=== PATIENT | female | born 1940 | race Hispanic/Latino ===

== ENCOUNTER → 2017-12-24 | Outpatient (CLI) | payer OTHER | END | disposition home or self-care (01) | LOC: RAH 08:34 | PROVIDERS: ATTEND Family Medicine | DX: R92.8 Other abnormal and inconclusive findings on diagnostic imaging of breast (principal); Z85.3 Personal history of malignant neoplasm of breast; Z90.12 Acquired absence of left breast and nipple | CPT/HCPCS: 77065 ==

== ENCOUNTER 2019-01-09 19:18 | Emergency (ER) | payer OTHER ==
[2019-01-09 19:36] LABS: APPEARANCE,URINE Clear (CLEAR); BILIRUBIN,URINE Negative (NEGATIVE); COLOR,URINE Yellow (YELLOW); GLUCOSE, URINE (UA) 250 mg/dL (NEGATIVE); KETONES,URINE Trace mg/dL (NEGATIVE); LEUKOCYTE ESTERASE ,URINE Trace (NEGATIVE); NITRATE,URINE Negative (NEGATIVE); OCCULT BLOOD,URINE Large (NEGATIVE); PROTEIN,URINE Trace mg/dL (NEGATIVE)
[2019-01-09 19:46] LABS: BACTERIA,URINE Few /HPF (None Seen); HYALINE CASTS, URINE 0-1 /LPF (0-1 /LPF); WBC,URINE 0-1 /HPF (0-1)
[2019-01-09 19:48] LABS: BASOPHILS % (AUTO) 0.1 % (0.0-5.0); HEMATOCRIT 36.5 % (36-48); LYMPHOCYTES % (AUTO) 11.8 % (21.0-51.0); MEAN CORPUSCULAR HEMOGLOBIN 30.8 pg (27.0-33.0); MEAN CORPUSCULAR HGB CONC 33.8 g/dL (32.0-36.0); MEAN CORPUSCULAR VOLUME 91.2 fL (79-99); MONOCYTES % (AUTO) 5.6 % (3.0-13.0); NEUTROPHILS % (AUTO) 82.5 % (40.0-77.0); PLATELET COUNT (AUTO) 218 K/uL (130-400); RED CELL DISTRIBUTION WIDTH 15.9 % (11.0-15.5); WHITE BLOOD COUNT (AUTO) 10.5 K/uL (4.8-10.8)
[2019-01-09 20:02] LABS: ALBUMIN 4.1 g/dL (3.5-5.0); BILIRUBIN,TOTAL 0.4 mg/dL (0.2-1.0); CREATININE 1.1 mg/dL (0.5-1.5); TOTAL PROTEIN, SERUM 7.5 g/dL (6.0-8.3)
[2019-01-09 20:03] LABS: POTASSIUM 2.8 mmol/L (3.5-5.1)
[2019-01-09] MEDS ORDERED: ONDANSETRON HCL 4 MG/2 ML VIAL ONE (20:15)
[2019-01-09] MEDS ORDERED: POTASSIUM CHLORIDE 20 MEQ ERTAB PO ONE (20:16)
[2019-01-13] MEDS ORDERED: SIMV20TA6 PO (05:47)
[2019-01-13] MEDS ORDERED: METF-446 PO (05:47)
[2019-01-13] MEDS ORDERED: LOSA100T58 PO (05:47)
[2019-01-13] MEDS ORDERED: GLIP5TAB11 PO (05:47)
== END 2019-01-10 00:27 | disposition home or self-care (01) ==
LOC: EDH 19:18
DX: E11.9 Type 2 diabetes mellitus without complications (principal); I10 Essential (primary) hypertension; E78.5 Hyperlipidemia, unspecified; Z90.12 Acquired absence of left breast and nipple
CPT/HCPCS: 36415; 74021; 80053; 81001; 83690; 84484; 85025; 87088; 93005; 96374; 99285; J2405

== ENCOUNTER 2020-02-03 09:53 | Day surgery (SDC) | payer OTHER ==
[~2020-02-03] VITALS: Ht 154.9 cm; Wt 48.1 kg
[2020-02-03] VITALS (8 sets, daily range): BP systolic 94–133; BP diastolic 41–73
[~2020-02-03 09:53] MED LIST: ACET-2743 PO; GLIP5TAB11 PO; LORA10TA7 PO; LOSA100T58 PO; METF-446 PO; MULT-1203 PO; SIMV-43 PO
[2020-02-03] MEDS ORDERED: SODIUM CHLORIDE 0.9% 1000ML 1,000 ML IV ONE (10:50)
[2020-02-03] MEDS ORDERED: PROPOFOL 10 MG/ML 20ML VIAL IV ONE (12:52)
== END 2020-02-03 13:30 | disposition home or self-care (01) ==
LOC: ENDO 09:53 → DAH 09:53 → ENDO 13:30
PROVIDERS: ATTEND Student in an Organized Health Care Education/Training Program
DX: Z12.11 Encounter for screening for malignant neoplasm of colon (principal); K63.5 Polyp of colon; Z11.59 Encounter for screening for other viral diseases; I10 Essential (primary) hypertension; E11.9 Type 2 diabetes mellitus without complications; E78.00 Pure hypercholesterolemia, unspecified; Z85.038 Personal history of other malignant neoplasm of large intestine
CPT/HCPCS: 36415; 45380; 82948 ×2; 88305; A4215; A4221; A4222; A4223; A4606; A4620; A4657; A4663; J2704; J7030; U0003; 43200

== ENCOUNTER → 2020-12-16 | Outpatient (CLI) | payer OTHER | END | disposition home or self-care (01) | LOC: RAH 09:48 | PROVIDERS: ATTEND Family Medicine | DX: R92.2 Inconclusive mammogram (principal); Z85.3 Personal history of malignant neoplasm of breast; Z90.12 Acquired absence of left breast and nipple | CPT/HCPCS: 77065 ==

== ENCOUNTER 2021-06-14 07:23 | Day surgery (SDC) | payer OTHER ==
[~2021-06-14] VITALS: Ht 154.9 cm; Wt 48.5 kg
[2021-06-14] VITALS (8 sets, daily range): BP systolic 12–129; BP diastolic 48–81
[~2021-06-14 07:23] MED LIST changes: -LORA10TA7 PO
[2021-06-14] MEDS ORDERED: 0.9%NACL 1000ML 1,000 ML IV ONE (07:40)
[2021-06-14] MEDS ORDERED: FAMO20TA8 PO (08:27)
[2021-06-14] MEDS ORDERED: ASCO500T20 PO (08:27)
[2021-06-14] MEDS ORDERED: PROPOFOL 10 MG/ML 20ML VIAL IV ONE (08:30)
[2021-06-14] MEDS ORDERED: PHENYLEPHRINE HCL 10 MG/ML 1ML VIAL IV ONE (08:30)
[2021-06-14] MEDS ORDERED: GLYCOPYRROLATE 1 MG/5 ML SYRINGE ONE (08:30)
[2021-06-14 10:04] LABS: HEMATOCRIT 40.5 % (36-48); MEAN CORPUSCULAR HEMOGLOBIN 31.4 pg (27.0-33.0); MEAN CORPUSCULAR HGB CONC 32.1 g/dL (32.0-36.0); MEAN CORPUSCULAR VOLUME 97.8 fL (79-99); PLATELET COUNT (AUTO) 186 K/uL (130-400); RED BLOOD CELL COUNT(AUTO) 4.14 MIL/uL (4.00-5.50); RED CELL DISTRIBUTION WIDTH 13.5 % (11.0-15.5); WHITE BLOOD COUNT (AUTO) 8.4 K/uL (4.8-10.8)
[2021-06-14 10:20] LABS: ALBUMIN 4.1 g/dL (3.5-5.0); BILIRUBIN,TOTAL 0.3 mg/dL (0.2-1.0); CREATININE 1.2 mg/dL (0.5-1.5); POTASSIUM 4.2 mmol/L (3.5-5.1); TOTAL PROTEIN, SERUM 7.9 g/dL (6.0-8.3)
[2021-06-14 10:54] LABS: LYMPHOCYTES % (MANUAL) 25 % (22-44); MAN.DIFF COMMENT-IMPRESSION MANUAL DIFFERENTIAL; MONOCYTES % (MANUAL) 3 % (2-9); PLATELET MORPHOLOGY COMMENT ADEQUATE; REACTIVE LYMPHOCYTES 5 % (0-0); SEGMENTED NEUTROPHILS % 67 % (40-70)
== END 2021-06-14 09:50 | disposition home or self-care (01) ==
LOC: DAH 07:23
PROVIDERS: ATTEND Student in an Organized Health Care Education/Training Program
DX: Z08 Encounter for follow-up examination after completed treatment for malignant neoplasm (principal); Z20.822 Contact with and (suspected) exposure to COVID-19; K43.2 Incisional hernia without obstruction or gangrene; K21.9 Gastro-esophageal reflux disease without esophagitis; E11.9 Type 2 diabetes mellitus without complications; I10 Essential (primary) hypertension; Z90.12 Acquired absence of left breast and nipple; Z79.84 Long term (current) use of oral hypoglycemic drugs; Z98.891 History of uterine scar from previous surgery; Z98.890 Other specified postprocedural states; Z98.0 Intestinal bypass and anastomosis status; Z85.038 Personal history of other malignant neoplasm of large intestine
CPT/HCPCS: 36415; 45378; 80053; 82948 ×2; 85025; 87635; A4215 ×2; A4221; A4222; A4223; A4606; A4620; A4657; A4663; C9803; J2370; J2704; J3490; J7030

== ENCOUNTER 2023-02-01 07:19 | Observation (INO) | payer OTHER ==
[2023-01-28 11:35] LABS: BASOPHILS % (AUTO) 0.6 % (0.0-5.0); EOSINOPHILS % (AUTO) 0.9 % (0.0-8.0); HEMATOCRIT 37.8 % (36-48); LYMPHOCYTES % (AUTO) 30.3 % (21.0-51.0); MEAN CORPUSCULAR HEMOGLOBIN 31.9 pg (27.0-33.0); MEAN CORPUSCULAR HGB CONC 32.5 g/dL (32.0-36.0); MEAN CORPUSCULAR VOLUME 97.9 fL (79-99); MONOCYTES % (AUTO) 8.1 % (3.0-13.0); NEUTROPHILS % (AUTO) 59.7 % (40.0-77.0); PLATELET COUNT (AUTO) 178 K/uL (130-400); RED BLOOD CELL COUNT(AUTO) 3.86 MIL/uL (4.00-5.50); RED CELL DISTRIBUTION WIDTH 13.6 % (11.0-15.5); WHITE BLOOD COUNT (AUTO) 6.9 K/uL (4.8-10.8)
[2023-01-28 11:37] LABS: APPEARANCE,URINE CLEAR (CLEAR); BILIRUBIN,URINE NEGATIVE (NEGATIVE); COLOR,URINE LIGHT-YELLOW (YELLOW); GLUCOSE, URINE (UA) >=1000 mg/dL (NEGATIVE); KETONES,URINE NEGATIVE (NEGATIVE); LEUKOCYTE ESTERASE ,URINE NEGATIVE Leu/uL (NEGATIVE); NITRATE,URINE NEGATIVE (NEGATIVE); OCCULT BLOOD,URINE SMALL (NEGATIVE); PH,URINE 5.5 (5.0-8.0); PROTEIN,URINE NEGATIVE (NEGATIVE); UROBILINOGEN,URINE 0.2 mg/dL (0.2-1.0)
[2023-01-28 11:46] LABS: INR 0.94 (0.85-1.15); PROTHROMBIN TIME 10.3 SEC (9.6-11.6)
[2023-01-28 11:47] LABS: PARTIAL THROMBOPLASTIN TIME 25.1 SEC (26.3-35.5)
[2023-01-28 11:48] LABS: ALBUMIN 3.6 g/dL (3.5-5.0); POTASSIUM 4.7 mmol/L (3.5-5.1)
[2023-01-28 11:58] LABS: BACTERIA,URINE RARE /HPF (None Seen); SQUAMOUS EPITHELIAL CELL,UR RARE /HPF (0-2); TRANSITIONAL EPI CELLS,URINE RARE /HPF (None Seen); WBC,URINE 0-1 /HPF (0-1)
[2023-01-28 12:26] VITALS: BP 146/64
[2023-02-01] VITALS (21 sets, daily range): BP systolic 114–174; BP diastolic 55–81
[~2023-02-01] VITALS: Ht 152.4 cm; Wt 49.9 kg
[~2023-02-01 07:19] MED LIST changes: -ACET-2743 PO; +ASCO500T20 PO; -LOSA100T58 PO; +LOSA100T59 PO
[2023-02-01] MEDS ORDERED: 0.9%NACL 1000ML 1,000 ML IV ONE (09:30)
[2023-02-01] MEDS ORDERED: CEFAZOLIN SODIUM 2 GM VIAL ONE (09:30)
[2023-02-01] MEDS ORDERED: LIDOCAINE PF 100MG/5ML (2%) SYRINGE 5ML ONE (14:58)
[2023-02-01] MEDS ORDERED: PROPOFOL 10 MG/ML 20ML VIAL IV ONE (14:59)
[2023-02-01] MEDS ORDERED: ROCURONIUM 10MG/1ML SYR 10 MG/ML ML ONE ×2 (14:59→17:17)
[2023-02-01] MEDS ORDERED: FENTANYL CITRATE PF 50 MCG/1 ML 2ML VIAL ONE (15:00)
[2023-02-01] MEDS ORDERED: BUPIVACAINE/PF 0.5% 30ML VIAL ONE (15:24)
[2023-02-01] MEDS ORDERED: BUPIVACAINE/PF 0.5% 30ML VIAL INJ ONE (15:51)
[2023-02-01] MEDS ORDERED: CEFAZOLIN SODIUM 2 GM VIAL IVPB ONE (15:56)
[2023-02-01] MEDS ORDERED: DEXAMETHASONE SOD PHOSPHATE 4 MG/ML 1ML VIAL ONE (16:39)
[2023-02-01] MEDS ORDERED: PHENYLEPHRINE HCL 10 MG/ML 1ML VIAL IV ONE (16:39)
[2023-02-01] MEDS ORDERED: ONDANSETRON 4MG INJ ONE ×2 (16:39→19:19)
[2023-02-01] MEDS ORDERED: GLYCOPYRROLATE 1 MG/5 ML SYRINGE ONE (18:37)
[2023-02-01] MEDS ORDERED: NEOSTIGMINE 5MG/5ML SYR IV ONE (18:37)
[2023-02-01] MEDS ORDERED: TRAMADOL HCL 50 MG TABLET PO PRN (19:00)
[2023-02-01] MEDS ORDERED: ONDANSETRON 4MG INJ IVP PRN (19:00)
[2023-02-01] MEDS ORDERED: KETOROLAC 15MG/ML VIAL (15MG/ML) IM PRN (19:00)
[2023-02-01] MEDS ORDERED: MORPHINE 4 MG SYG IV PRN (19:00)
[2023-02-01] MEDS ORDERED: MEPERIDINE-PF 25 MG/ML SYG ONE (19:20)
[2023-02-01] MEDS: SIMETHICONE 80 MG TAB.CHEW PO SCH (21:20)
[2023-02-01] MEDS: CYCLOBENZAPRINE HCL 10 MG TABLET PO SCH (21:21)
[2023-02-02] VITALS (7 sets, daily range): BP systolic 131–148; BP diastolic 64–72
[2023-02-02 06:06] LABS: CREATININE 1.3 mg/dL (0.5-1.5); POTASSIUM 4.3 mmol/L (3.5-5.1)
[2023-02-02] MEDS: SIMETHICONE 80 MG TAB.CHEW PO SCH ×3 (09:50→19:56)
[2023-02-02] MEDS: CYCLOBENZAPRINE HCL 10 MG TABLET PO SCH ×2 (09:50→19:56)
[2023-02-03] VITALS: BP 152/84
[2023-02-03 04:00] VITALS: BP 150/84
[2023-02-03 05:46] LABS: CREATININE 0.9 mg/dL (0.5-1.5); POTASSIUM 3.9 mmol/L (3.5-5.1)
[2023-02-03 08:00] VITALS: BP 147/78
[2023-02-03] MEDS: SIMETHICONE 80 MG TAB.CHEW PO SCH (08:02)
[2023-02-03] MEDS: CYCLOBENZAPRINE HCL 10 MG TABLET PO SCH (08:02)
== END 2023-02-03 10:42 | disposition home or self-care (01) ==
LOC: DAH 07:19 → DAHIP 07:20 → DAH 07:20 → 3CH 20:25
PROVIDERS: ADMIT Student in an Organized Health Care Education/Training Program; ATTEND Student in an Organized Health Care Education/Training Program
DX: K43.9 Ventral hernia without obstruction or gangrene (principal); Z20.822 Contact with and (suspected) exposure to COVID-19; K43.2 Incisional hernia without obstruction or gangrene; C18.9 Malignant neoplasm of colon, unspecified; K66.0 Peritoneal adhesions (postprocedural) (postinfection); E78.00 Pure hypercholesterolemia, unspecified; I10 Essential (primary) hypertension; E11.9 Type 2 diabetes mellitus without complications; Z79.899 Other long term (current) drug therapy
CPT/HCPCS: 80053; 85025; 85610; 85730; 87426; 81001; 36415 ×3; 93005; 64488; 49593; 82948 ×7; 88302; 96374; 96375; 80048 ×2; A6260; G0378 ×40; J7030 ×2; J3010; J3490 ×3; J2710; J2001; J2704; J2405 ×3; J1100; J2175; J2370; J0690 ×2; C1769; G0168; C1781; A4215; A4223; A4222; A4221; A4663; J2270

== ENCOUNTER → 2025-05-26 | Outpatient (CLI) | payer OTHER ==
[~2025-05-26] MED LIST changes: -GLIP5TAB11 PO; +GLIP5TAB15 PO
== END | disposition home or self-care (01) ==
LOC: RAH 09:01
PROVIDERS: ATTEND Family Medicine
DX: Z12.31 Encounter for screening mammogram for malignant neoplasm of breast (principal)
CPT/HCPCS: 77067